=== PATIENT | female | born 1935 | race Caucasian/White ===

== ENCOUNTER 2022-03-04 13:17 | Observation (INO) ==
[2022-03-04] MEDS ORDERED: PANTOPRAZOLE 40 MG VIAL IV STA (14:32)
[2022-03-04 14:42] LABS: Basophils # 0.1 10*3/uL (0.0-0.2); Basophils % 0.5 % (0.0-0.8); Eosinophils # 0.1 10*3/uL (0.0-0.87); Hematocrit 44.9 VOL% (35.7-47.0); Hemoglobin 14.5 GM/DL (12.0-16.0); Immature Granulocytes % 0.5 %; Immature Granulocytes Absolute 0.05 #; Lymphocytes # 1.6 10*3/uL (1.4-4.0); Lymphocytes % 14.8 % (21.3-54.2); Mean Corpuscular HGB Conc 32.3 GM/DL (32-36); Mean Corpuscular Volume 93.9 FL (87-102); Mean Platelet Volume 10.9 FL (9.6-12.0); Monocytes % 8.7 % (1.7-12.7); Neutrophils % 74.5 % (38.7-73.9); Platelet Count 398 T/CUMM (130-400); Red Blood Count 4.78 MC/CUMM (3.8-5.5); Red Cell Distribution Width 15.3 % (9.3-17.3); White Blood Count 11.1 T/CUMM (4-12)
[2022-03-04 14:45] LABS: INR 1.1; PT Patient Result 12.2 SECS (10.5-12.0)
[2022-03-04 15:07] LABS: Albumin 3.9 G/DL (3.4-5.0); Bilirubin,Total 1.1 MG/DL (0.20-1.00); Calcium 9.9 MG/DL (8.5-10.1); Osmolality,Calculated 275.1 MOS/KG (273-304); Potassium 3.9 MMOL/L (3.5-5.1)
[2022-03-04] MEDS ORDERED: GLUCAGON 1 MG VIAL IM PRN (16:48)
[2022-03-04] MEDS ORDERED: DEXTROSE 10% 250 ML BAG IV PRN (17:01)
[2022-03-04] MEDS: SODIUM CHLORIDE 0.9% 1,000 ML IV SCH (18:23)
[2022-03-04] MEDS: MORPHINE 2 MG/1 ML SYRINGE IV PRN (20:23)
[2022-03-04] MEDS: ONDANSETRON 4 MG/2 ML VIAL IV PRN (20:23)
[2022-03-04 21:45] LABS: Hematocrit 38.5 VOL% (35.7-47.0); Hemoglobin 12.7 GM/DL (12.0-16.0)
[2022-03-05] MEDS: MORPHINE 2 MG/1 ML SYRINGE IV PRN ×2 (00:53→22:41)
[2022-03-05 05:18] LABS: Basophils % 0.4 % (0.0-0.8); Eosinophils # 0.1 10*3/uL (0.0-0.87); Eosinophils % 1.2 % (0.00-10.9); Hematocrit 38.7 VOL% (35.7-47.0); Hemoglobin 12.5 GM/DL (12.0-16.0); Immature Granulocytes % 0.5 %; Immature Granulocytes Absolute 0.05 #; Lymphocytes # 1.5 10*3/uL (1.4-4.0); Lymphocytes % 15.7 % (21.3-54.2); Mean Corpuscular HGB Conc 32.3 GM/DL (32-36); Mean Corpuscular Volume 94.4 FL (87-102); Mean Platelet Volume 11.4 FL (9.6-12.0); Monocytes # 0.9 10*3/uL (0.11-0.8); Monocytes % 8.8 % (1.7-12.7); Neutrophils % 73.4 % (38.7-73.9); Platelet Count 309 T/CUMM (130-400); Red Cell Distribution Width 15.1 % (9.3-17.3); White Blood Count 9.7 T/CUMM (4-12)
[2022-03-05 05:40] LABS: Albumin 3.1 G/DL (3.4-5.0); Bilirubin,Total 0.6 MG/DL (0.20-1.00); Osmolality,Calculated 270.4 MOS/KG (273-304); Potassium 3.6 MMOL/L (3.5-5.1); Total Protein 6.9 G/DL (6.4-8.2)
[2022-03-05] MEDS: CHOLECALCIFEROL 1,000 UNIT TABLET PO SCH (09:03)
[2022-03-05] MEDS: PANTOPRAZOLE 40 MG VIAL IV SCH (09:04)
[2022-03-05 09:37] LABS: Hematocrit 36.2 VOL% (35.7-47.0); Hemoglobin 11.7 GM/DL (12.0-16.0)
[2022-03-05] MEDS: SODIUM CHLORIDE 0.9% 1,000 ML IV SCH (10:00)
[2022-03-05 15:06] LABS: Hematocrit 38.6 VOL% (35.7-47.0); Hemoglobin 12.3 GM/DL (12.0-16.0)
[2022-03-05] MEDS: HYDROCORTISONE 25 MG SUPP RECTAL SCH ×2 (16:14→22:42)
[2022-03-05 16:44] LABS: RBC,Urine 1 /HPF (0-4); Squamous Epithelial Cell,Urine Occasional /HPF (0-10); Transitional Epi Cells,Urine Occasional /HPF (<1)
[2022-03-05 16:46] LABS: Bilirubin,Urine Negative (Negative); Blood, Urine Trace mg/dL (Negative); Glucose,Urine (UA) Negative (Negative); Ketones,Urine Negative (Negative); Nitrite,Urine Negative (Negative); Protein,Urine Negative (Negative); Urine Appearance Clear (Clear); Urine Color Yellow (Yellow); Urine Urobilinogen 0.2 eU/dL (<2.0); Urine pH 6.5 (4.5-8.0)
[2022-03-06] MEDS: SODIUM CHLORIDE 0.9% 1,000 ML IV SCH ×2 (02:45→21:39)
[2022-03-06] MEDS: METHOCARBAMOL 750 MG TABLET PO PRN ×2 (04:03→22:56)
[2022-03-06] MEDS: CHOLECALCIFEROL 1,000 UNIT TABLET PO SCH (08:36)
[2022-03-06] MEDS: PANTOPRAZOLE 40 MG VIAL IV SCH (08:36)
[2022-03-06] MEDS: HYDROCORTISONE 25 MG SUPP RECTAL SCH ×3 (08:36→21:39)
[2022-03-06] MEDS: MORPHINE 2 MG/1 ML SYRINGE IV PRN ×2 (09:36→21:52)
[2022-03-06 09:37] LABS: Basophils # 0.1 10*3/uL (0.0-0.2); Basophils % 0.7 % (0.0-0.8); Eosinophils # 0.3 10*3/uL (0.0-0.87); Eosinophils % 3.4 % (0.00-10.9); Hematocrit 40.2 VOL% (35.7-47.0); Hemoglobin 12.7 GM/DL (12.0-16.0); Immature Granulocytes % 0.4 %; Immature Granulocytes Absolute 0.03 #; Lymphocytes # 2.1 10*3/uL (1.4-4.0); Lymphocytes % 27.4 % (21.3-54.2); Mean Corpuscular HGB Conc 31.6 GM/DL (32-36); Mean Corpuscular Volume 96.2 FL (87-102); Mean Platelet Volume 11.3 FL (9.6-12.0); Monocytes # 0.9 10*3/uL (0.11-0.8); Monocytes % 12.1 % (1.7-12.7); Platelet Count 294 T/CUMM (130-400); Red Blood Count 4.18 MC/CUMM (3.8-5.5); Red Cell Distribution Width 15.2 % (9.3-17.3); White Blood Count 7.6 T/CUMM (4-12)
[2022-03-06 09:52] LABS: Osmolality,Calculated 273.7 MOS/KG (273-304); Potassium 3.3 MMOL/L (3.5-5.1)
[2022-03-06] MEDS: POTASSIUM CHLORIDE 20 MEQ TABLET PO PRN ×3 (14:14→18:18)
[2022-03-06] MEDS ORDERED: POLYETHYLENE GLYCOL POWDER 255 GM BOTTLE PO ONE (18:00)
[2022-03-06] MEDS: BISACODYL 5 MG TABLET PO SCH (18:08)
[2022-03-06] MEDS ORDERED: MAGNESIUM CITRATE 300 ML BOTTLE PO ONE (21:00)
[2022-03-07] MEDS: BISACODYL 5 MG TABLET PO SCH ×2 (01:22→10:05)
[2022-03-07] MEDS ORDERED: POLYETHYLENE GLYCOL POWDER 255 GM BOTTLE PO ONE ×2 (02:00→05:00)
[2022-03-07 07:54] LABS: Basophils % 0.4 % (0.0-0.8); Eosinophils # 0.2 10*3/uL (0.0-0.87); Eosinophils % 2.6 % (0.00-10.9); Hematocrit 37.4 VOL% (35.7-47.0); Hemoglobin 11.8 GM/DL (12.0-16.0); Immature Granulocytes % 0.8 %; Immature Granulocytes Absolute 0.06 #; Lymphocytes # 1.1 10*3/uL (1.4-4.0); Lymphocytes % 15.5 % (21.3-54.2); Mean Corpuscular HGB Conc 31.6 GM/DL (32-36); Mean Corpuscular Volume 97.1 FL (87-102); Mean Platelet Volume 11.3 FL (9.6-12.0); Monocytes # 0.8 10*3/uL (0.11-0.8); Monocytes % 11.5 % (1.7-12.7); Neutrophils % 69.2 % (38.7-73.9); Platelet Count 262 T/CUMM (130-400); Red Blood Count 3.85 MC/CUMM (3.8-5.5); Red Cell Distribution Width 15.1 % (9.3-17.3); White Blood Count 7.2 T/CUMM (4-12)
[2022-03-07] MEDS ORDERED: propofoL 200 MG/20 ML VIAL IV ONE (08:42)
[2022-03-07] MEDS ORDERED: LIDOCAINE 2% 5 ML VIAL ONE (08:42)
[2022-03-07] MEDS ORDERED: LACTATED RINGERS 1,000 ML IV SCH (10:00)
[2022-03-07] MEDS: HYDROCORTISONE 25 MG SUPP RECTAL SCH ×2 (10:04→14:53)
[2022-03-07] MEDS: CHOLECALCIFEROL 1,000 UNIT TABLET PO SCH (10:04)
[2022-03-07] MEDS: PANTOPRAZOLE 40 MG VIAL IV SCH (10:05)
[2022-03-07] MEDS: SODIUM CHLORIDE 0.9% 1,000 ML IV SCH (13:00)
[2022-03-07] MEDS: MORPHINE 2 MG/1 ML SYRINGE IV PRN (13:47)
[2022-03-07] MEDS ORDERED: TUBERCULIN SKIN TEST 0.1 ML SYRINGE INTRADERM ONE (14:30)
[2022-03-07] MEDS: ONDANSETRON 4 MG/2 ML VIAL IV PRN (15:17)
[2022-03-07 15:50] VITALS: BP 154/81
== END 2022-03-07 18:15 | disposition home health service (06) ==
LOC: N.ED 13:17 → N.EDINP 13:17 → SUATTDRO 16:48 → N.EDINP 18:05 → N.3E 18:31
PROVIDERS: ADMIT Internal Medicine; ATTEND Internal Medicine
PROC: COLONBX (2022-03-07 08:20)

== ENCOUNTER 2022-03-11 16:58 | Inpatient (IN) ==
[2022-03-11 18:24] LABS: Basophils # 0.1 10*3/uL (0.0-0.2); Basophils % 0.6 % (0.0-0.8); Eosinophils # 0.1 10*3/uL (0.0-0.87); Eosinophils % 1.5 % (0.00-10.9); Hematocrit 38.4 VOL% (35.7-47.0); Hemoglobin 12.2 GM/DL (12.0-16.0); Immature Granulocytes % 0.8 %; Immature Granulocytes Absolute 0.07 #; Lymphocytes # 1.3 10*3/uL (1.4-4.0); Lymphocytes % 14.7 % (21.3-54.2); Mean Corpuscular HGB Conc 31.8 GM/DL (32-36); Mean Corpuscular Volume 96.5 FL (87-102); Mean Platelet Volume 10.3 FL (9.6-12.0); Monocytes # 1.1 10*3/uL (0.11-0.8); Monocytes % 12.5 % (1.7-12.7); Neutrophils % 69.9 % (38.7-73.9); Platelet Count 352 T/CUMM (130-400); Red Blood Count 3.98 MC/CUMM (3.8-5.5); Red Cell Distribution Width 16.2 % (9.3-17.3); White Blood Count 8.8 T/CUMM (4-12)
[2022-03-11 18:38] LABS: Albumin 3.4 G/DL (3.4-5.0); Bilirubin,Total 0.9 MG/DL (0.20-1.00); Calcium 9.4 MG/DL (8.5-10.1); Osmolality,Calculated 276.7 MOS/KG (273-304); Potassium 4.6 MMOL/L (3.5-5.1)
[2022-03-11 19:21] LABS: RBC,Urine 52 /HPF (0-4); Squamous Epithelial Cell,Urine Occasional /HPF (0-10)
[2022-03-11 19:22] LABS: Bilirubin,Urine Negative (Negative); Blood, Urine Large mg/dL (Negative); Glucose,Urine (UA) Negative (Negative); Ketones,Urine Negative (Negative); Nitrite,Urine Negative (Negative); Protein,Urine Negative (Negative); Urine Appearance Clear (Clear); Urine Color Yellow (Yellow); Urine Urobilinogen 0.2 eU/dL (<2.0)
[2022-03-11] MEDS ORDERED: ONDANSETRON 4 MG/2 ML VIAL IV PRN (22:05)
[2022-03-11] MEDS ORDERED: ONDANSETRON 4 MG/2 ML VIAL IV STA (22:06)
[2022-03-11] MEDS ORDERED: MORPHINE 2 MG/1 ML SYRINGE IV STA (22:07)
[2022-03-11] MEDS ORDERED: GLUCAGON 1 MG VIAL IM PRN (23:07)
[2022-03-11] MEDS ORDERED: DEXTROSE 10% 250 ML BAG IV PRN (23:34)
[2022-03-12] MEDS: ONDANSETRON ODT 4 MG TABLET PO SCH ×3 (00:13→20:17)
[2022-03-12] MEDS: APIXABAN 5 MG TABLET PO SCH ×2 (00:13→08:36)
[2022-03-12] MEDS ORDERED: LEVOFLOXACIN INJ 750 MG/150 ML PREMIX IV SCH (02:30)
[2022-03-12] MEDS: MORPHINE 2 MG/1 ML SYRINGE IV PRN ×2 (03:20→16:54)
[2022-03-12] MEDS: ONDANSETRON 4 MG/2 ML VIAL IV PRN (03:29)
[2022-03-12 06:09] LABS: Basophils % 0.6 % (0.0-0.8); Eosinophils # 0.1 10*3/uL (0.0-0.87); Eosinophils % 1.9 % (0.00-10.9); Hematocrit 35.5 VOL% (35.7-47.0); Hemoglobin 11.1 GM/DL (12.0-16.0); Immature Granulocytes % 0.7 %; Immature Granulocytes Absolute 0.05 #; Lymphocytes % 13.3 % (21.3-54.2); Mean Corpuscular HGB Conc 31.3 GM/DL (32-36); Mean Corpuscular Volume 96.2 FL (87-102); Mean Platelet Volume 10.4 FL (9.6-12.0); Monocytes # 0.9 10*3/uL (0.11-0.8); Monocytes % 12.2 % (1.7-12.7); Neutrophils % 71.3 % (38.7-73.9); Platelet Count 313 T/CUMM (130-400); Red Blood Count 3.69 MC/CUMM (3.8-5.5); Red Cell Distribution Width 16.3 % (9.3-17.3); White Blood Count 7.2 T/CUMM (4-12)
[2022-03-12 06:17] LABS: Calcium 8.6 MG/DL (8.5-10.1); Osmolality,Calculated 277.5 MOS/KG (273-304); Potassium 4.5 MMOL/L (3.5-5.1)
[2022-03-12 07:20] LABS: Sedimentation Rate-Westergren 62 MM/HR (0-30)
[2022-03-12] MEDS ORDERED: FUROSEMIDE 20 MG/2 ML VIAL IV ONE (08:09)
[2022-03-12] MEDS: POTASSIUM CHLORIDE 20 MEQ TABLET PO SCH (08:36)
[2022-03-12] MEDS: DICLOFENAC 1% GEL 100 GM TUBE TOP SCH ×4 (08:36→20:18)
[2022-03-12] MEDS: ROSUVASTATIN 10 MG TABLET PO SCH (08:36)
[2022-03-12] MEDS: DOCUSATE SODIUM 100 MG CAPSULE PO SCH ×2 (08:36→20:17)
[2022-03-12] MEDS: DONEPEZIL 5 MG TABLET PO SCH (08:36)
[2022-03-12] MEDS: LOSARTAN 50 MG TABLET PO SCH (08:36)
[2022-03-12] MEDS: PANTOPRAZOLE 40 MG TABLET PO SCH (08:36)
[2022-03-12 11:37] LABS: Bilirubin,Urine Negative (Negative); Glucose,Urine (UA) Negative (Negative); Ketones,Urine Negative (Negative); Nitrite,Urine Negative (Negative); Protein,Urine Negative (Negative); RBC,Urine 212 /HPF (0-4); Squamous Epithelial Cell,Urine Occasional /HPF (0-10); Urine Appearance Clear (Clear); Urine Color LT. RED (Yellow); Urine pH 5.5 (4.5-8.0)
[2022-03-12 11:38] LABS: Blood, Urine Large mg/dL (Negative); Urine Urobilinogen 0.2 eU/dL (<2.0)
[2022-03-12] MEDS: METHOCARBAMOL 750 MG TABLET PO PRN (20:22)
[2022-03-13] MEDS: MORPHINE 2 MG/1 ML SYRINGE IV PRN (05:42)
[2022-03-13] MEDS: DONEPEZIL 5 MG TABLET PO SCH (08:41)
[2022-03-13] MEDS: METHOCARBAMOL 750 MG TABLET PO PRN (08:41)
[2022-03-13] MEDS: POTASSIUM CHLORIDE 20 MEQ TABLET PO SCH (08:41)
[2022-03-13] MEDS: ONDANSETRON ODT 4 MG TABLET PO SCH ×2 (08:41→21:13)
[2022-03-13] MEDS: ROSUVASTATIN 10 MG TABLET PO SCH (08:41)
[2022-03-13] MEDS: LOSARTAN 50 MG TABLET PO SCH (08:41)
[2022-03-13] MEDS: DOCUSATE SODIUM 100 MG CAPSULE PO SCH ×2 (08:41→21:13)
[2022-03-13] MEDS: ACETAMINOPHEN 325 MG TABLET PO PRN (08:42)
[2022-03-13] MEDS: DICLOFENAC 1% GEL 100 GM TUBE TOP SCH ×4 (08:43→21:16)
[2022-03-13 10:07] LABS: Basophils % 0.4 % (0.0-0.8); Eosinophils # 0.1 10*3/uL (0.0-0.87); Eosinophils % 0.8 % (0.00-10.9); Hematocrit 40.8 VOL% (35.7-47.0); Hemoglobin 12.8 GM/DL (12.0-16.0); Immature Granulocytes % 0.8 %; Immature Granulocytes Absolute 0.08 #; Lymphocytes # 1.7 10*3/uL (1.4-4.0); Mean Corpuscular HGB Conc 31.4 GM/DL (32-36); Mean Corpuscular Volume 96.2 FL (87-102); Mean Platelet Volume 10.1 FL (9.6-12.0); Monocytes # 1.1 10*3/uL (0.11-0.8); Monocytes % 10.4 % (1.7-12.7); Neutrophils % 70.6 % (38.7-73.9); Platelet Count 373 T/CUMM (130-400); Red Blood Count 4.24 MC/CUMM (3.8-5.5); Red Cell Distribution Width 16.1 % (9.3-17.3); White Blood Count 10.1 T/CUMM (4-12)
[2022-03-13 10:26] LABS: Osmolality,Calculated 276.8 MOS/KG (273-304); Potassium 4.4 MMOL/L (3.5-5.1)
[2022-03-13] MEDS: LACTATED RINGERS 1,000 ML IV SCH ×2 (11:27→21:27)
[2022-03-13] MEDS ORDERED: cefTRIAXone 1,000 MG in SODIUM CHLORIDE 0.9% 100 ML IV SCH (12:30)
[2022-03-13] MEDS: PANTOPRAZOLE 40 MG TABLET PO SCH (13:10)
[2022-03-13] MEDS: ONDANSETRON 4 MG/2 ML VIAL IV PRN ×2 (14:12→20:26)
[2022-03-14 05:33] LABS: Basophils % 0.5 % (0.0-0.8); Eosinophils # 0.2 10*3/uL (0.0-0.87); Eosinophils % 2.4 % (0.00-10.9); Hematocrit 37.2 VOL% (35.7-47.0); Hemoglobin 11.9 GM/DL (12.0-16.0); Immature Granulocytes % 0.7 %; Immature Granulocytes Absolute 0.06 #; Lymphocytes # 1.6 10*3/uL (1.4-4.0); Lymphocytes % 18.9 % (21.3-54.2); Mean Corpuscular Volume 95.4 FL (87-102); Mean Platelet Volume 11.3 FL (9.6-12.0); Monocytes % 12.2 % (1.7-12.7); Neutrophils % 65.3 % (38.7-73.9); Platelet Count 178 T/CUMM (130-400); Red Cell Distribution Width 16.1 % (9.3-17.3); White Blood Count 8.2 T/CUMM (4-12)
[2022-03-14 05:50] LABS: Calcium 9.2 MG/DL (8.5-10.1); Osmolality,Calculated 276.7 MOS/KG (273-304); Potassium 4.2 MMOL/L (3.5-5.1)
[2022-03-14] MEDS ORDERED: cefTRIAXone 1,000 MG in SODIUM CHLORIDE 0.9% 100 ML IV ONE (08:01)
[2022-03-14] MEDS: DOCUSATE SODIUM 100 MG CAPSULE PO SCH ×2 (08:41→20:55)
[2022-03-14] MEDS: cefTRIAXone 1,000 MG in SODIUM CHLORIDE 0.9% 100 ML IV SCH (08:41)
[2022-03-14] MEDS: PANTOPRAZOLE 40 MG TABLET PO SCH (08:41)
[2022-03-14] MEDS: ROSUVASTATIN 10 MG TABLET PO SCH (08:41)
[2022-03-14] MEDS: POTASSIUM CHLORIDE 20 MEQ TABLET PO SCH (08:41)
[2022-03-14] MEDS: DONEPEZIL 5 MG TABLET PO SCH (08:42)
[2022-03-14] MEDS: ONDANSETRON ODT 4 MG TABLET PO SCH ×2 (08:42→20:55)
[2022-03-14] MEDS: METHOCARBAMOL 750 MG TABLET PO PRN ×2 (08:42→22:18)
[2022-03-14] MEDS: DICLOFENAC 1% GEL 100 GM TUBE TOP SCH ×4 (08:43→20:54)
[2022-03-14] MEDS: LACTATED RINGERS 1,000 ML IV SCH ×2 (08:43→17:58)
[2022-03-15] MEDS: LACTATED RINGERS 1,000 ML IV SCH ×2 (05:56→18:18)
[2022-03-15] MEDS ORDERED: cefTRIAXone 1,000 MG in SODIUM CHLORIDE 0.9% 100 ML IV ONE (06:00)
[2022-03-15 06:32] LABS: Basophils % 0.5 % (0.0-0.8); Eosinophils # 0.2 10*3/uL (0.0-0.87); Eosinophils % 2.1 % (0.00-10.9); Hemoglobin 11.2 GM/DL (12.0-16.0); Immature Granulocytes % 0.9 %; Immature Granulocytes Absolute 0.07 #; Lymphocytes # 1.2 10*3/uL (1.4-4.0); Lymphocytes % 15.2 % (21.3-54.2); Mean Corpuscular Volume 95.9 FL (87-102); Mean Platelet Volume 10.4 FL (9.6-12.0); Monocytes # 0.9 10*3/uL (0.11-0.8); Monocytes % 11.2 % (1.7-12.7); Neutrophils % 70.1 % (38.7-73.9); Platelet Count 308 T/CUMM (130-400); Red Blood Count 3.65 MC/CUMM (3.8-5.5); Red Cell Distribution Width 16.2 % (9.3-17.3)
[2022-03-15 06:39] LABS: Calcium 9.3 MG/DL (8.5-10.1); Osmolality,Calculated 274.7 MOS/KG (273-304); Potassium 3.9 MMOL/L (3.5-5.1)
[2022-03-15] MEDS: DICLOFENAC 1% GEL 100 GM TUBE TOP SCH ×4 (08:55→22:09)
[2022-03-15] MEDS: LOSARTAN 50 MG TABLET PO SCH (12:06)
[2022-03-15] MEDS: APIXABAN 5 MG TABLET PO SCH (12:06)
[2022-03-15] MEDS ORDERED: ETOMIDATE 40 MG/20 ML VIAL IV ONE (15:00)
[2022-03-15] MEDS ORDERED: ONDANSETRON 4 MG/2 ML VIAL ONE (15:00)
[2022-03-15] MEDS ORDERED: LIDOCAINE 2% 5 ML VIAL ONE (15:00)
[2022-03-15] MEDS ORDERED: SEVOFLURANE 1 UNIT/15 MINUTE INH ONE ×3 (15:00→16:15)
[2022-03-15] MEDS ORDERED: fentaNYL 100 MCG/2 ML VIAL ONE (15:00)
[2022-03-15] MEDS ORDERED: diphenhydrAMINE 50 MG/1 ML VIAL IV PRN (17:45)
[2022-03-15] MEDS: HYDROmorphone 1 MG/1 ML SYRINGE IV PRN ×2 (18:00→23:53)
[2022-03-15] MEDS: DONEPEZIL 5 MG TABLET PO SCH (18:09)
[2022-03-15] MEDS: ROSUVASTATIN 10 MG TABLET PO SCH (18:09)
[2022-03-15] MEDS: POTASSIUM CHLORIDE 20 MEQ TABLET PO SCH (18:09)
[2022-03-15] MEDS: DOCUSATE SODIUM 100 MG CAPSULE PO SCH ×2 (18:09→21:51)
[2022-03-15] MEDS: cefTRIAXone 1,000 MG in SODIUM CHLORIDE 0.9% 100 ML IV SCH (18:10)
[2022-03-15] MEDS: PANTOPRAZOLE 40 MG TABLET PO SCH (18:10)
[2022-03-15] MEDS: ONDANSETRON ODT 4 MG TABLET PO SCH ×2 (18:10→21:51)
[2022-03-15] MEDS: OXYBUTYNIN 5 MG TABLET PO SCH (22:09)
[2022-03-16] MEDS: LACTATED RINGERS 1,000 ML IV SCH ×2 (04:54→15:20)
[2022-03-16 05:09] LABS: Basophils # 0.1 10*3/uL (0.0-0.2); Basophils % 0.6 % (0.0-0.8); Eosinophils # 0.2 10*3/uL (0.0-0.87); Eosinophils % 2.2 % (0.00-10.9); Hematocrit 36.2 VOL% (35.7-47.0); Hemoglobin 11.6 GM/DL (12.0-16.0); Immature Granulocytes % 0.5 %; Immature Granulocytes Absolute 0.04 #; Lymphocytes # 1.4 10*3/uL (1.4-4.0); Lymphocytes % 17.9 % (21.3-54.2); Mean Corpuscular Volume 95.5 FL (87-102); Mean Platelet Volume 11.4 FL (9.6-12.0); Monocytes # 0.9 10*3/uL (0.11-0.8); Monocytes % 11.5 % (1.7-12.7); Neutrophils % 67.3 % (38.7-73.9); Platelet Count 269 T/CUMM (130-400); Red Blood Count 3.79 MC/CUMM (3.8-5.5); Red Cell Distribution Width 16.6 % (9.3-17.3); White Blood Count 7.8 T/CUMM (4-12)
[2022-03-16 05:35] LABS: Calcium 8.3 MG/DL (8.5-10.1); Osmolality,Calculated 273.7 MOS/KG (273-304); Potassium 4.1 MMOL/L (3.5-5.1)
[2022-03-16] MEDS: cefTRIAXone 1,000 MG in SODIUM CHLORIDE 0.9% 100 ML IV SCH (08:31)
[2022-03-16] MEDS: DICLOFENAC 1% GEL 100 GM TUBE TOP SCH ×4 (08:32→21:37)
[2022-03-16] MEDS: ONDANSETRON ODT 4 MG TABLET PO SCH ×2 (08:32→21:35)
[2022-03-16] MEDS: PANTOPRAZOLE 40 MG TABLET PO SCH (08:32)
[2022-03-16] MEDS: DONEPEZIL 5 MG TABLET PO SCH (08:32)
[2022-03-16] MEDS: OXYBUTYNIN 5 MG TABLET PO SCH ×3 (08:32→21:35)
[2022-03-16] MEDS: POTASSIUM CHLORIDE 20 MEQ TABLET PO SCH (08:32)
[2022-03-16] MEDS: DOCUSATE SODIUM 100 MG CAPSULE PO SCH ×2 (08:32→21:35)
[2022-03-16] MEDS: ROSUVASTATIN 10 MG TABLET PO SCH (08:32)
[2022-03-16] MEDS: HYDROmorphone 1 MG/1 ML SYRINGE IV PRN (15:21)
[2022-03-17] MEDS: LACTATED RINGERS 1,000 ML IV SCH ×2 (01:34→21:40)
[2022-03-17 05:53] LABS: Basophils % 0.4 % (0.0-0.8); Eosinophils # 0.2 10*3/uL (0.0-0.87); Eosinophils % 2.2 % (0.00-10.9); Hematocrit 34.1 VOL% (35.7-47.0); Hemoglobin 10.9 GM/DL (12.0-16.0); Immature Granulocytes % 0.6 %; Immature Granulocytes Absolute 0.05 #; Lymphocytes # 1.2 10*3/uL (1.4-4.0); Lymphocytes % 12.9 % (21.3-54.2); Mean Corpuscular Volume 96.9 FL (87-102); Mean Platelet Volume 10.2 FL (9.6-12.0); Monocytes % 10.7 % (1.7-12.7); Neutrophils % 73.2 % (38.7-73.9); Platelet Count 302 T/CUMM (130-400); Red Blood Count 3.52 MC/CUMM (3.8-5.5); Red Cell Distribution Width 16.4 % (9.3-17.3); White Blood Count 9.1 T/CUMM (4-12)
[2022-03-17 06:06] LABS: Calcium 8.3 MG/DL (8.5-10.1); Osmolality,Calculated 279.4 MOS/KG (273-304); Potassium 3.6 MMOL/L (3.5-5.1)
[2022-03-17] MEDS: OXYBUTYNIN 5 MG TABLET PO SCH ×3 (09:30→21:42)
[2022-03-17] MEDS: DOCUSATE SODIUM 100 MG CAPSULE PO SCH ×2 (09:30→21:41)
[2022-03-17] MEDS: PANTOPRAZOLE 40 MG TABLET PO SCH (09:30)
[2022-03-17] MEDS: DONEPEZIL 5 MG TABLET PO SCH (09:30)
[2022-03-17] MEDS: ONDANSETRON ODT 4 MG TABLET PO SCH ×2 (09:30→21:41)
[2022-03-17] MEDS: POTASSIUM CHLORIDE 20 MEQ TABLET PO SCH (09:30)
[2022-03-17] MEDS: cefTRIAXone 1,000 MG in SODIUM CHLORIDE 0.9% 100 ML IV SCH (09:31)
[2022-03-17] MEDS: DICLOFENAC 1% GEL 100 GM TUBE TOP SCH ×3 (09:33→17:52)
[2022-03-17] MEDS: ROSUVASTATIN 10 MG TABLET PO SCH (09:38)
[2022-03-17] MEDS ORDERED: TUBERCULIN SKIN TEST 0.1 ML SYRINGE INTRADERM ONE (20:00)
[2022-03-17] MEDS: METHOCARBAMOL 750 MG TABLET PO PRN (21:41)
[2022-03-17] MEDS: ACETAMINOPHEN 325 MG TABLET PO PRN (21:43)
[2022-03-18] MEDS: LACTATED RINGERS 1,000 ML IV SCH ×2 (05:00→09:41)
[2022-03-18] MEDS: DICLOFENAC 1% GEL 100 GM TUBE TOP SCH ×5 (05:01→20:15)
[2022-03-18 05:29] LABS: Basophils # 0.1 10*3/uL (0.0-0.2); Basophils % 0.6 % (0.0-0.8); Eosinophils # 0.1 10*3/uL (0.0-0.87); Eosinophils % 0.8 % (0.00-10.9); Hemoglobin 10.7 GM/DL (12.0-16.0); Immature Granulocytes % 0.9 %; Immature Granulocytes Absolute 0.09 #; Lymphocytes # 1.1 10*3/uL (1.4-4.0); Lymphocytes % 10.7 % (21.3-54.2); Mean Corpuscular HGB Conc 32.4 GM/DL (32-36); Mean Corpuscular Volume 95.1 FL (87-102); Mean Platelet Volume 10.1 FL (9.6-12.0); Monocytes # 0.9 10*3/uL (0.11-0.8); Monocytes % 9.1 % (1.7-12.7); Neutrophils % 77.9 % (38.7-73.9); Platelet Count 298 T/CUMM (130-400); Red Blood Count 3.47 MC/CUMM (3.8-5.5); Red Cell Distribution Width 16.4 % (9.3-17.3); White Blood Count 10.3 T/CUMM (4-12)
[2022-03-18 05:53] LABS: Calcium 8.7 MG/DL (8.5-10.1); Osmolality,Calculated 276.5 MOS/KG (273-304); Potassium 3.9 MMOL/L (3.5-5.1)
[2022-03-18] MEDS: cefTRIAXone 1,000 MG in SODIUM CHLORIDE 0.9% 100 ML IV SCH (09:37)
[2022-03-18] MEDS: ONDANSETRON ODT 4 MG TABLET PO SCH ×2 (09:39→20:15)
[2022-03-18] MEDS: DONEPEZIL 5 MG TABLET PO SCH (09:39)
[2022-03-18] MEDS: PANTOPRAZOLE 40 MG TABLET PO SCH (09:40)
[2022-03-18] MEDS: ROSUVASTATIN 10 MG TABLET PO SCH (09:40)
[2022-03-18] MEDS: DOCUSATE SODIUM 100 MG CAPSULE PO SCH ×2 (09:40→20:15)
[2022-03-18] MEDS: OXYBUTYNIN 5 MG TABLET PO SCH ×3 (09:40→20:15)
[2022-03-18] MEDS: POTASSIUM CHLORIDE 20 MEQ TABLET PO SCH (09:40)
[2022-03-18] MEDS ORDERED: APIXABAN 5 MG TABLET PO ONE (11:30)
[2022-03-18] MEDS: ONDANSETRON 4 MG/2 ML VIAL IV PRN (15:33)
[2022-03-18] MEDS: APIXABAN 5 MG TABLET PO SCH (20:15)
[2022-03-19] MEDS: ONDANSETRON 4 MG/2 ML VIAL IV PRN ×2 (06:36→16:14)
[2022-03-19] MEDS: PANTOPRAZOLE 40 MG TABLET PO SCH (08:33)
[2022-03-19] MEDS: ROSUVASTATIN 10 MG TABLET PO SCH (08:34)
[2022-03-19] MEDS: POTASSIUM CHLORIDE 20 MEQ TABLET PO SCH (08:34)
[2022-03-19] MEDS: OXYBUTYNIN 5 MG TABLET PO SCH ×3 (08:34→20:24)
[2022-03-19] MEDS: ONDANSETRON ODT 4 MG TABLET PO SCH ×2 (08:35→20:24)
[2022-03-19] MEDS: DOCUSATE SODIUM 100 MG CAPSULE PO SCH ×2 (08:36→20:23)
[2022-03-19] MEDS: DONEPEZIL 5 MG TABLET PO SCH (08:36)
[2022-03-19] MEDS: cefTRIAXone 1,000 MG in SODIUM CHLORIDE 0.9% 100 ML IV SCH (08:36)
[2022-03-19] MEDS: APIXABAN 5 MG TABLET PO SCH ×2 (10:17→20:23)
[2022-03-19] MEDS ORDERED: FUROSEMIDE 40 MG/4 ML VIAL IV ONE (10:19)
[2022-03-19] MEDS: DICLOFENAC 1% GEL 100 GM TUBE TOP SCH ×4 (10:36→20:24)
[2022-03-19] MEDS: LACTATED RINGERS 1,000 ML IV SCH (10:36)
[2022-03-20] MEDS: ONDANSETRON 4 MG/2 ML VIAL IV PRN (01:41)
[2022-03-20] MEDS: cefTRIAXone 1,000 MG in SODIUM CHLORIDE 0.9% 100 ML IV SCH (08:56)
[2022-03-20] MEDS: DICLOFENAC 1% GEL 100 GM TUBE TOP SCH ×4 (08:57→21:08)
[2022-03-20] MEDS: ROSUVASTATIN 10 MG TABLET PO SCH (08:57)
[2022-03-20] MEDS: OXYBUTYNIN 5 MG TABLET PO SCH ×3 (08:57→21:07)
[2022-03-20] MEDS: POTASSIUM CHLORIDE 20 MEQ TABLET PO SCH (08:57)
[2022-03-20] MEDS: ONDANSETRON ODT 4 MG TABLET PO SCH ×2 (08:57→21:07)
[2022-03-20] MEDS: PANTOPRAZOLE 40 MG TABLET PO SCH (08:57)
[2022-03-20] MEDS: DONEPEZIL 5 MG TABLET PO SCH (08:57)
[2022-03-20] MEDS: APIXABAN 5 MG TABLET PO SCH ×2 (08:57→21:07)
[2022-03-20] MEDS: DOCUSATE SODIUM 100 MG CAPSULE PO SCH ×2 (08:57→21:06)
[2022-03-20] MEDS ORDERED: ALBUTEROL/IPRATROPIUM 3 ML NEB RESP TX PRN (11:13)
[2022-03-20 11:38] LABS: Arterial Base Excess iSTAT 5 MMOL/L (-2.5-2.5); Arterial Bicarbonate iSTAT 28.3 MMOL/L (20-26); Arterial O2 Saturation iSTAT 94 % (95-100); Arterial PCO2 iSTAT 37 MM HG (35-48); Arterial PO2 iSTAT 63 MM HG (80-95); Arterial Total CO2 iSTAT 29 MMO/L (23-27); Arterial pH iSTAT 7.488 (7.35-7.45)
[2022-03-20] MEDS ORDERED: FUROSEMIDE 40 MG/4 ML VIAL IV ONE (13:22)
[2022-03-20 13:51] LABS: Basophils # 0.1 10*3/uL (0.0-0.2); Basophils % 0.4 % (0.0-0.8); Eosinophils % 0.4 % (0.00-10.9); Hematocrit 35.4 VOL% (35.7-47.0); Hemoglobin 11.3 GM/DL (12.0-16.0); Immature Granulocytes % 0.7 %; Immature Granulocytes Absolute 0.08 #; Lymphocytes # 0.9 10*3/uL (1.4-4.0); Lymphocytes % 8.1 % (21.3-54.2); Mean Corpuscular HGB Conc 31.9 GM/DL (32-36); Mean Corpuscular Volume 95.2 FL (87-102); Mean Platelet Volume 9.8 FL (9.6-12.0); Monocytes # 1.2 10*3/uL (0.11-0.8); Monocytes % 10.9 % (1.7-12.7); Neutrophils % 79.5 % (38.7-73.9); Platelet Count 384 T/CUMM (130-400); Red Blood Count 3.72 MC/CUMM (3.8-5.5); Red Cell Distribution Width 16.6 % (9.3-17.3); White Blood Count 11.2 T/CUMM (4-12)
[2022-03-20 14:09] LABS: Calcium 8.6 MG/DL (8.5-10.1); Osmolality,Calculated 283.3 MOS/KG (273-304); Potassium 3.7 MMOL/L (3.5-5.1)
[2022-03-21] MEDS: ONDANSETRON ODT 4 MG TABLET PO SCH (10:08)
[2022-03-21] MEDS: DOCUSATE SODIUM 100 MG CAPSULE PO SCH (10:08)
[2022-03-21] MEDS: DONEPEZIL 5 MG TABLET PO SCH (10:09)
[2022-03-21] MEDS: POTASSIUM CHLORIDE 20 MEQ TABLET PO SCH (10:09)
[2022-03-21] MEDS: OXYBUTYNIN 5 MG TABLET PO SCH ×2 (10:09→15:01)
[2022-03-21] MEDS: ROSUVASTATIN 10 MG TABLET PO SCH (10:09)
[2022-03-21] MEDS: PANTOPRAZOLE 40 MG TABLET PO SCH (10:09)
[2022-03-21] MEDS: APIXABAN 5 MG TABLET PO SCH (10:09)
[2022-03-21] MEDS: cefTRIAXone 1,000 MG in SODIUM CHLORIDE 0.9% 100 ML IV SCH (10:10)
[2022-03-21] MEDS: DICLOFENAC 1% GEL 100 GM TUBE TOP SCH ×2 (11:29→13:24)
[2022-03-21 16:42] VITALS: BP 105/59
== END 2022-03-21 16:38 | DRG 659 ==
LOC: N.ED 16:58 → N.3E 16:58 → SUATTDRO 22:40 → N.3E 03-12 00:27 → SUATTDRO 03-13 09:25
PROVIDERS: ADMIT Internal Medicine; ATTEND Internal Medicine

== ENCOUNTER 2022-09-11 20:56 | Inpatient (IN) ==
[2022-09-11 21:38] LABS: Basophils % 0.3 % (0.0-0.8); Eosinophils % 0.7 % (0.00-10.9); Hemoglobin 11.5 GM/DL (12.0-16.0); Immature Granulocytes % 2.1 %; Immature Granulocytes Absolute 0.13 #; Lymphocytes # 3.1 10*3/uL (1.4-4.0); Lymphocytes % 50.4 % (21.3-54.2); Mean Corpuscular HGB Conc 31.1 GM/DL (32-36); Mean Platelet Volume 10.6 FL (9.6-12.0); Monocytes # 0.5 10*3/uL (0.11-0.8); Monocytes % 8.2 % (1.7-12.7); Neutrophils % 38.3 % (38.7-73.9); Platelet Count 282 T/CUMM (130-400); White Blood Count 6.1 T/CUMM (4-12)
[2022-09-11 22:04] LABS: Alanine Aminotransferase 12 U/L (13-56); Alkaline Phosphatase 79 U/L (45-117); Aspartate Amino Transferase 27 U/L (0-37); Bilirubin,Total < 0.39 MG/DL (0.20-1.00); Blood Urea Nitrogen 44 MG/DL (7-18); Calcium 8.2 MG/DL (8.5-10.1); Carbon Dioxide 17 MMOL/L (21-32); Chloride 112 MMOL/L (98-107); Glucose 125 MG/DL (74-106); Osmolality,Calculated 284.8 MOS/KG (273-304); Potassium 5.5 MMOL/L (3.5-5.1); Sodium 137 MMOL/L (136-145); Total Protein 6.1 G/DL (6.4-8.2)
[2022-09-11] MEDS ORDERED: INSULIN REGULAR 100 UNIT/ML IV STA (22:15)
[2022-09-11] MEDS ORDERED: DEXTROSE 50% 25 GM/50 ML VIAL IV STA (22:15)
[2022-09-11] MEDS ORDERED: SODIUM CHLORIDE 0.9% 1,000 ML IV STA (22:15)
[2022-09-11 22:25] LABS: Mucus,Urine Occasional /LPF (Occasional); RBC,Urine 481 /HPF (0-4)
[2022-09-11] MEDS ORDERED: DEXTROSE 50% 25 GM/50 ML SYRINGE IV ONE (22:25)
[2022-09-11] MEDS ORDERED: DEXTROSE 50% 25 GM/50 ML SYRINGE IV STA (22:25)
[2022-09-11 22:27] LABS: Glucose,Urine (UA) Negative (Negative); Ketones,Urine Trace mg/dL (Negative); Nitrite,Urine Positive (Negative); Protein,Urine >=300 mg/dL (Negative); Urine Appearance Turbid (Clear); Urine Color Dark yellow (Yellow); Urine Specific Gravity 1.025 (1.001-1.035); Urine pH 5.5 (4.5-8.0)
[2022-09-11 22:28] LABS: Bilirubin,Urine Trace mg/dL (Negative); Blood, Urine Large mg/dL (Negative); Urine Urobilinogen 0.2 eU/dL (<2.0)
[2022-09-11] MEDS ORDERED: LEVOFLOXACIN INJ 750 MG/150 ML PREMIX IV STA (22:30)
[2022-09-11 22:35] LABS: Anisocytosis 1+; Atypical Lymphocytes Moderate; Lymphocytes 46 % (20-55); Total Cells Counted 100
[2022-09-12] MEDS ORDERED: SODIUM CHLORIDE 0.9% 1,000 ML IV STA (00:10)
[2022-09-12] MEDS ORDERED: guaiFENesin/DM ER 600-30 MG TABLET PO PRN (00:36)
[2022-09-12] MEDS ORDERED: NICOTINE 21 MG/24 HR PATCH TRANSDERM PRN (00:36)
[2022-09-12] MEDS ORDERED: ACETAMINOPHEN 325 MG TABLET PO PRN ×2 (00:36→16:14)
[2022-09-12] MEDS ORDERED: ONDANSETRON 4 MG/2 ML VIAL IV PRN (00:36)
[2022-09-12] MEDS ORDERED: ZALEPLON 5 MG CAPSULE PO PRN (00:36)
[2022-09-12] MEDS ORDERED: diphenhydrAMINE CAP 25 MG CAPSULE PO PRN (00:36)
[2022-09-12] MEDS: ALBUTEROL/IPRATROPIUM 3 ML NEB RESP TX SCH ×4 (01:00→19:45)
[2022-09-12] MEDS: DEXTROSE 5% NACL 0.9% 1,000 ML IV SCH ×2 (02:25→03:45)
[2022-09-12 02:26] LABS: Basophils % 0.3 % (0.0-0.8); Eosinophils # 0.1 10*3/uL (0.0-0.87); Eosinophils % 1.2 % (0.00-10.9); Hematocrit 34.9 VOL% (35.7-47.0); Hemoglobin 10.6 GM/DL (12.0-16.0); Immature Granulocytes % 1.8 %; Immature Granulocytes Absolute 0.11 #; Lymphocytes # 3.3 10*3/uL (1.4-4.0); Lymphocytes % 54.9 % (21.3-54.2); Mean Corpuscular HGB Conc 30.4 GM/DL (32-36); Mean Corpuscular Volume 87.5 FL (87-102); Mean Platelet Volume 10.4 FL (9.6-12.0); Monocytes # 0.5 10*3/uL (0.11-0.8); Monocytes % 8.5 % (1.7-12.7); Neutrophils % 33.3 % (38.7-73.9); Platelet Count 221 T/CUMM (130-400); Red Blood Count 3.99 MC/CUMM (3.8-5.5)
[2022-09-12 02:46] LABS: Calcium 7.6 MG/DL (8.5-10.1); Osmolality,Calculated 282.8 MOS/KG (273-304); Potassium 4.3 MMOL/L (3.5-5.1)
[2022-09-12 02:54] LABS: Lymphocytes 62 % (20-55); Platelet Estimate Normal
[2022-09-12 02:55] LABS: Giant Platelets Few
[2022-09-12 02:56] LABS: Anisocytosis 1+; Total Cells Counted 100
[2022-09-12] MEDS ORDERED: SODIUM BICARBONATE 50 MEQ/50 ML VIAL IV ONE (03:30)
[2022-09-12] MEDS ORDERED: OXYBUTYNIN 5 MG TABLET PO PRN (03:36)
[2022-09-12] MEDS ORDERED: GABAPENTIN 100 MG CAPSULE PO PRN (03:36)
[2022-09-12] MEDS ORDERED: HydrOXYzine PAMOATE 25 MG CAPSULE PO PRN (03:36)
[2022-09-12] MEDS ORDERED: tiZANidine 4 MG TABLET PO PRN (03:36)
[2022-09-12] MEDS ORDERED: NOREPINEPHRINE DRIP 8 MG/250 ML PREMIX IV PRN (03:46)
[2022-09-12] MEDS ORDERED: NOREPINEPHRINE DRIP 8 MG/250 ML PREMIX IV ONE (03:47)
[2022-09-12] MEDS ORDERED: LACTULOSE 20 GM/30 ML UDCUP PO PRN (03:48)
[2022-09-12] MEDS ORDERED: MELATONIN 3 MG TABLET PO PRN (03:51)
[2022-09-12] MEDS ORDERED: PHENAZOPYRIDINE 95 MG TABLET PO PRN (03:52)
[2022-09-12] MEDS: LEVOTHYROXINE 100 MCG TABLET PO SCH (06:53)
[2022-09-12] MEDS ORDERED: MAGNESIUM SULF RIDER 2 GM/50 ML PREMIX IV PRN (07:44)
[2022-09-12] MEDS ORDERED: MAGNESIUM SULF RIDER 4 GM/100 ML PREMIX IV PRN (07:44)
[2022-09-12] MEDS: PANTOPRAZOLE 40 MG TABLET PO SCH (08:44)
[2022-09-12] MEDS: APIXABAN 5 MG TABLET PO SCH ×2 (08:44→20:12)
[2022-09-12] MEDS: POLYETHYLENE GLYCOL POWDER 17 GM PACK PO SCH (08:44)
[2022-09-12] MEDS: DONEPEZIL 5 MG TABLET PO SCH (08:44)
[2022-09-12] MEDS: HYDROCORTISONE 100 MG VIAL IV SCH ×2 (08:45→15:23)
[2022-09-12] MEDS ORDERED: SERTRALINE 25 MG TABLET PO SCH (09:00)
[2022-09-12] MEDS ORDERED: ROSUVASTATIN 10 MG TABLET PO SCH (09:00)
[2022-09-12] MEDS ORDERED: MELOXICAM 7.5 MG TABLET PO SCH (09:00)
[2022-09-12] MEDS ORDERED: POTASSIUM CHLORIDE 20 MEQ TABLET PO SCH (09:00)
[2022-09-12] MEDS: SODIUM BICARB INJ 50 MEQ in DEXTROSE 5% NACL 0.45% 1,000 ML IV SCH ×2 (09:04→20:11)
[2022-09-12] MEDS: MEROPENEM 500 MG in SODIUM CHLORIDE 0.9% 100 ML IV SCH (13:32)
[2022-09-12] MEDS ORDERED: GABAPENTIN 50 MG/ML 30 ML/BOTTLE PO PRN (16:15)
[2022-09-12] MEDS: DESITIN 4OZ/NYSTATIN 15 GRAM MIXTURE PASTE TOP SCH (20:18)
[2022-09-12] MEDS ORDERED: LEVOFLOXACIN INJ 750 MG/150 ML PREMIX IV SCH (22:30)
[2022-09-13] MEDS: ALBUTEROL/IPRATROPIUM 3 ML NEB RESP TX SCH ×4 (00:25→19:04)
[2022-09-13] MEDS: HYDROCORTISONE 100 MG VIAL IV SCH ×3 (01:13→20:37)
[2022-09-13] MEDS: MEROPENEM 500 MG in SODIUM CHLORIDE 0.9% 100 ML IV SCH (01:17)
[2022-09-13 04:57] LABS: Hematocrit 29.8 VOL% (35.7-47.0); Hemoglobin 9.6 GM/DL (12.0-16.0); Immature Granulocytes % 1.4 %; Immature Granulocytes Absolute 0.05 #; Lymphocytes # 0.8 10*3/uL (1.4-4.0); Mean Corpuscular HGB Conc 32.2 GM/DL (32-36); Mean Corpuscular Volume 83.2 FL (87-102); Mean Platelet Volume 10.4 FL (9.6-12.0); Monocytes # 0.3 10*3/uL (0.11-0.8); Monocytes % 7.4 % (1.7-12.7); Neutrophils % 70.2 % (38.7-73.9); Platelet Count 219 T/CUMM (130-400); Red Blood Count 3.58 MC/CUMM (3.8-5.5); Red Cell Distribution Width 19.8 % (9.3-17.3); White Blood Count 3.7 T/CUMM (4-12)
[2022-09-13 05:38] LABS: Calcium 7.8 MG/DL (8.5-10.1); Osmolality,Calculated 287.1 MOS/KG (273-304); Potassium 3.6 MMOL/L (3.5-5.1); Thyroid Stimulating Hormone 0.604 uIU/ml (0.358-3.74)
[2022-09-13] MEDS: SODIUM BICARB INJ 50 MEQ in DEXTROSE 5% NACL 0.45% 1,000 ML IV SCH (07:00)
[2022-09-13] MEDS: PANTOPRAZOLE 40 MG TABLET PO SCH (08:09)
[2022-09-13] MEDS: DONEPEZIL 5 MG TABLET PO SCH (08:09)
[2022-09-13] MEDS: LEVOTHYROXINE 100 MCG TABLET PO SCH (08:09)
[2022-09-13] MEDS: APIXABAN 5 MG TABLET PO SCH ×2 (08:10→20:36)
[2022-09-13] MEDS: POLYETHYLENE GLYCOL POWDER 17 GM PACK PO SCH (08:11)
[2022-09-13] MEDS: INSULIN LISPRO 100 UNIT/ML SUBCUT SCH ×3 (08:15→16:46)
[2022-09-13] MEDS ORDERED: LEVOFLOXACIN INJ 500 MG/100 ML PREMIX IV SCH (09:00)
[2022-09-13] MEDS: DESITIN 4OZ/NYSTATIN 15 GRAM MIXTURE PASTE TOP SCH ×3 (11:26→20:32)
[2022-09-14] MEDS: ALBUTEROL/IPRATROPIUM 3 ML NEB RESP TX SCH ×4 (00:42→19:35)
[2022-09-14 06:01] LABS: Basophils % 0.1 % (0.0-0.8); Hematocrit 29.7 VOL% (35.7-47.0); Hemoglobin 9.5 GM/DL (12.0-16.0); Immature Granulocytes % 0.9 %; Immature Granulocytes Absolute 0.06 #; Lymphocytes # 1.3 10*3/uL (1.4-4.0); Lymphocytes % 19.1 % (21.3-54.2); Mean Corpuscular Volume 83.9 FL (87-102); Mean Platelet Volume 10.1 FL (9.6-12.0); Monocytes # 0.5 10*3/uL (0.11-0.8); Neutrophils % 72.9 % (38.7-73.9); Platelet Count 248 T/CUMM (130-400); Red Blood Count 3.54 MC/CUMM (3.8-5.5); Red Cell Distribution Width 20.2 % (9.3-17.3)
[2022-09-14 06:26] LABS: Calcium 8.3 MG/DL (8.5-10.1); Osmolality,Calculated 283.3 MOS/KG (273-304); Potassium 3.7 MMOL/L (3.5-5.1)
[2022-09-14] MEDS: LEVOTHYROXINE 100 MCG TABLET PO SCH (06:28)
[2022-09-14] MEDS ORDERED: LEVOFLOXACIN INJ 500 MG/100 ML PREMIX IV SCH (09:00)
[2022-09-14] MEDS: INSULIN LISPRO 100 UNIT/ML SUBCUT SCH ×3 (09:10→16:31)
[2022-09-14] MEDS: DONEPEZIL 5 MG TABLET PO SCH (09:47)
[2022-09-14] MEDS: PANTOPRAZOLE 40 MG TABLET PO SCH (09:47)
[2022-09-14] MEDS: APIXABAN 5 MG TABLET PO SCH ×2 (09:47→21:25)
[2022-09-14] MEDS: POLYETHYLENE GLYCOL POWDER 17 GM PACK PO SCH (09:47)
[2022-09-14] MEDS: cefTRIAXone 1,000 MG in SODIUM CHLORIDE 0.9% 100 ML IV SCH (09:48)
[2022-09-14] MEDS: HYDROCORTISONE 100 MG VIAL IV SCH ×2 (09:48→12:32)
[2022-09-14] MEDS: DESITIN 4OZ/NYSTATIN 15 GRAM MIXTURE PASTE TOP SCH ×2 (09:48→21:26)
[2022-09-15] MEDS: ALBUTEROL/IPRATROPIUM 3 ML NEB RESP TX SCH ×2 (00:45→07:31)
[2022-09-15] MEDS: LEVOTHYROXINE 100 MCG TABLET PO SCH (05:28)
[2022-09-15 05:36] LABS: Basophils % 0.3 % (0.0-0.8); Eosinophils % 0.4 % (0.00-10.9); Hematocrit 29.5 VOL% (35.7-47.0); Hemoglobin 9.2 GM/DL (12.0-16.0); Immature Granulocytes % 1.2 %; Immature Granulocytes Absolute 0.09 #; Lymphocytes % 26.8 % (21.3-54.2); Mean Corpuscular HGB Conc 31.2 GM/DL (32-36); Mean Corpuscular Volume 85.5 FL (87-102); Mean Platelet Volume 10.4 FL (9.6-12.0); Monocytes # 0.7 10*3/uL (0.11-0.8); Monocytes % 10.2 % (1.7-12.7); Neutrophils % 61.1 % (38.7-73.9); Platelet Count 244 T/CUMM (130-400); Red Blood Count 3.45 MC/CUMM (3.8-5.5); Red Cell Distribution Width 20.2 % (9.3-17.3); White Blood Count 7.3 T/CUMM (4-12)
[2022-09-15 05:56] LABS: Calcium 8.2 MG/DL (8.5-10.1); Osmolality,Calculated 288.8 MOS/KG (273-304); Potassium 3.3 MMOL/L (3.5-5.1)
[2022-09-15] MEDS: INSULIN LISPRO 100 UNIT/ML SUBCUT SCH ×2 (07:18→11:05)
[2022-09-15] MEDS: APIXABAN 5 MG TABLET PO SCH (08:11)
[2022-09-15] MEDS: PANTOPRAZOLE 40 MG TABLET PO SCH (08:11)
[2022-09-15] MEDS: cefTRIAXone 1,000 MG in SODIUM CHLORIDE 0.9% 100 ML IV SCH (08:11)
[2022-09-15] MEDS: DONEPEZIL 5 MG TABLET PO SCH (08:11)
[2022-09-15] MEDS: POLYETHYLENE GLYCOL POWDER 17 GM PACK PO SCH (08:11)
[2022-09-15] MEDS: DESITIN 4OZ/NYSTATIN 15 GRAM MIXTURE PASTE TOP SCH (08:12)
[2022-09-15] MEDS ORDERED: POTASSIUM BICARB EFFERVESCENT 20 MEQ TAB.EFF PO PRN (10:08)
[2022-09-15] MEDS: HYDROCORTISONE 100 MG VIAL IV SCH (10:23)
[2022-09-15 12:31] VITALS: BP 111/74
== END 2022-09-15 12:46 | DRG 871 ==
LOC: N.2W 20:56 → N.ED 20:56 → INTOOBSV 09-12 00:36 → SUATTDRO 09-12 00:36 → OBSVTOIN 09-12 00:36 → N.2W 09-12 01:35 → N.ICU 09-12 03:31 → SUATTDRO 09-12 06:38
PROVIDERS: ADMIT Internal Medicine; ATTEND Internal Medicine